=== PATIENT | male | born 1990 | race Caucasian/White ===

== ENCOUNTER 2018-05-08 22:45 | Inpatient (IN) | payer BC ==
[~2018-05-08] VITALS: Ht 182.9 cm; Wt 73.9 kg
--- NOTE | 2018-05-08 23:11 | NUR ---
BIBSELF C/C "FEELS LIKE THERE IS A BLOCKAGE OF ESOPHAGUS SINCE 8:30PM AFTER EATING". PT SPEAKING IN FULL SENTENCES. PT DENIES CHOKING. PT DENIES SOB. SKIN WARM AND DRY. PT IS AAOX4. PT AMBULATED WITH STEADY GAIT NOTED. NO S/S OF ACUTE DISTRESS NOTED. RR EVEN AND UNLABORED. PT PLACED ON MONITOR AND POX. PT SAFETY AND COMFORT MEASURES IN PLACE. BEDSIDE FOR [place]
[2018-05-08] MEDS ORDERED: GLUCAGON,HUMAN RECOMBINANT 1 MG/VIAL VIAL ONE (23:21)
[2018-05-08] MEDS ORDERED: GLUCAGON,HUMAN RECOMBINANT 1 MG/VIAL VIAL IV ONE (23:30)
[2018-05-09] MEDS ORDERED: MAG HYDROX/AL HYDROX/SIMETH 30 ML UDC PO ONE (00:30)
[2018-05-09] MEDS ORDERED: LIDOCAINE VISCOUS 2% UD 15 ML UDC MM ONE (00:30)
[2018-05-09] MEDS ORDERED: LIDOCAINE VISCOUS 2% UD 15 ML UDC ONE (00:46)
[2018-05-09] MEDS ORDERED: MAG HYDROX/AL HYDROX/SIMETH 30 ML UDC ONE (00:46)
[2018-05-09] MEDS ORDERED: IV NS 0.9% 1,000 ML BAG IV ONE (02:00)
[2018-05-09] MEDS ORDERED: ONDANSETRON HCL/PF 4 MG/2 ML VIAL IV ONE (02:00)
[2018-05-09] MEDS ORDERED: ONDANSETRON HCL/PF 4 MG/2 ML VIAL ONE (02:05)
--- NOTE | 2018-05-09 02:42 | NUR ---
REPORT GIVEN TO GIANLUCA MANE FOR LORENE
--- NOTE | 2018-05-09 02:50 | NUR ---
MS RN INITIAL NOTES Admitted this 27 y.o male to [place] room 323-2 under the service of Dr. Rock with admitting diagnosis of Acute Dysphagia. Patient came in via wheelchair accompanied by his girlfriend and 1 staff. AA/Ox4, no difficulty of speaking, speech clear. On room air, no respiratory problem noted, denies pain at this time. Ambulatory without assistance, balance steady. With nausea and frequently vomiting small amount of clear oral secretion, no food components noted. Had Zofran from ER less than an hour prior to coming in the unit. Assured comfort on bed, admission routine done. Patient denies any skin disorders, skin assessment. Patient verbalized he is comfortable and prefers to be on his casual clothes. Belongings inventory done by SEAMAN. Started IV D5NS @ 80ml/hr as ordered. Instructed on NPO for further observation, patient verbalized understanding intake restriction. Call light within easy reach. Instructed to not hesitate to call the nurse for any unusualities. Will continue to monitor.
[2018-05-09 03:00] VITALS: BP 131/78
[2018-05-09] MEDS ORDERED: MORPHINE SULFATE INJ 2 MG/ML DISP.SYRIN IV PRN (03:00)
[2018-05-09] MEDS: IV D5/ 0.9% NACL 1,000 ML IV PRN ×2 (03:00→19:03)
[2018-05-09] MEDS ORDERED: MORPHINE SULFATE INJ 4 MG/ML DISP.SYRIN IM PRN (06:30)
[2018-05-09] MEDS: ONDANSETRON HCL/PF 4 MG/2 ML VIAL IVP PRN ×2 (06:34→17:06)
[2018-05-09] MEDS: MORPHINE SULFATE INJ 4 MG/ML DISP.SYRIN IV PRN ×3 (06:35→21:21)
--- NOTE | 2018-05-09 06:42 | NUR ---
MS RN CLOSING NOTES Patient asleep on semi-Lawler's position on bed with patent peripheral IV line RAC G#20 with D5NS @ 80ml/hr as ordered. Kept on NPO. Patient was noted asleep around 3am, nausea and vomiting subsided. Ambulates self to toilet without assistance. Still felt something in esophagus just like upon admission. Nauseated throughout the shift, total vomitus 250ml, clear mostly saliva. Patient claimed he was able to sleep all night. Medicated with Zofran for nausea and Morphine for pain.
[2018-05-09 07:22] LABS: BASOPHILS % (AUTO) 0.5 % (0.0-2.0); HEMATOCRIT 45 % (39-51); HEMOGLOBIN 14.9 g/dL (13.5-17.5); LYMPHOCYTES # (AUTO) 1.6 /CMM (0.8-4.8); LYMPHOCYTES % (AUTO) 19.1 % (20.0-44.0); MEAN CORPUSCULAR HEMOGLOBIN 32 PG (26.0-33.0); MEAN CORPUSCULAR HGB CONC 33 g/dl (31.0-36.0); MEAN CORPUSCULAR VOLUME 96 fL (80-96); MONOCYTES # (AUTO) 0.6 /CMM (0.1-1.30); MONOCYTES % (AUTO) 7.2 % (2.0-12.0); NEUTROPHILS # (AUTO) 5.8 /CMM (1.8-8.9); NEUTROPHILS % (AUTO) 67.2 % (43.0-81.0); PLATELET COUNT (AUTO) 225 /CMM (150-450); RDW COEFFICIENT OF VARIATION 12.6 (11.5-15.0); RED BLOOD CELL COUNT(AUTO) 4.65 MIL/uL (4.5-6.0); WHITE BLOOD COUNT (AUTO) 8.6 K/uL (4.3-11.0)
--- NOTE | 2018-05-09 07:25 | NUR ---
MS/RN OPENING NOTE PATIENT ALERT AND ORIENTED X4. DENIES SOB. RESPIRATION REGULAR AND UNLABORED. DENIES PAIN. THE PATIENT DENIES NAUSEA/[id number]. RAC G 20 PATENT AND IV FLUID INFUSING WITH NO S/S INFILTRATION. PATIENT NPO. BED LOW AND LOCKED. SIDE RAILS UP X2. CALL LIGHT WITHIN REACH. WILL CONTINUE TO MONITOR.
[2018-05-09 07:49] LABS: ALBUMIN 4.3 g/dL (3.4-5.0); BILIRUBIN,TOTAL 0.8 mg/dL (0.2-1.0); CALCIUM, SERUM 8.9 mg/dL (8.5-10.1); CREATININE 1.1 mg/dL (0.6-1.3); POTASSIUM 3.8 mmol/L (3.5-5.1); TOTAL PROTEIN, SERUM 7.3 g/dL (6.4-8.2)
[2018-05-09 08:00] VITALS: BP 141/81
[2018-05-09] MEDS ORDERED: FAMOTIDINE/PF INJ 20 MG/2 ML VIAL IV SCH (09:00)
[2018-05-09] MEDS ORDERED: PANTOPRAZOLE 40 MG TABLET.DR PO SCH (12:30)
[2018-05-09 13:14] LABS: INR 1.04 (0.87-1.13)
[2018-05-09] MEDS ORDERED: PANTOPRAZOLE 40 MG VIAL IV ONE (13:30)
[2018-05-09] MEDS ORDERED: ANESTHESIA TRAY IN PYXIS 1 EA TRAY MC ONE (13:55)
[2018-05-09] MEDS ORDERED: FENTANYL PF 100MCG/2ML AMPUL ONE (14:19)
[2018-05-09] MEDS ORDERED: MIDAZOLAM HCL 2 MG/2ML VIAL ONE (14:19)
[2018-05-09] MEDS ORDERED: SUCCINYLCHOLINE CHLORIDE 20 MG/ML VIAL ONE (14:28)
[2018-05-09 16:00] VITALS: BP 140/93
--- NOTE | 2018-05-09 16:52 | NUR ---
MS/RN NOTE RECEIVED ORDER: MORPHINE SULFATE 1 MG IV PUSH STAT X1. THE ORDER IS VERIFIED. NOTED AND CARRIED OUT.
[2018-05-09] MEDS ORDERED: MORPHINE SULFATE INJ 4 MG/ML DISP.SYRIN IV ONE (17:00)
[2018-05-09] MEDS: PANTOPRAZOLE 40 MG VIAL IV SCH (17:00)
--- NOTE | 2018-05-09 17:34 | NUR ---
MS/RN NOTE RECEIVED NEW ORDER FROM DR DURON: VISCOUS LIDOCAIN 1% PO Q6HR PRN. N OTED AND CARRIED OUT.
--- NOTE | 2018-05-09 17:40 | NUR ---
MS/RN NOTE VISCOUS LIDOCAIN 1% NOT AVAILABLE IN PHARM. PER DR DURON NEW ORDER OF VISCOUS LIDOCAIN 2% PO Q6HR PRN IS PLACED.
[2018-05-09] MEDS: LIDOCAINE VISCOUS 2% UD 15 ML UDC PO PRN (17:59)
--- NOTE | 2018-05-09 17:59 | NUR ---
MS/RN NOTE PO MEDICATION LIDOCAINE PER DR DURON PATIENT NPO EXCEPT MEDS. PATIENT TOLERAED THE MEDICATION WELL.
--- NOTE | 2018-05-09 18:31 | NUR ---
MS/RN NOTE PER DR MARTIN NEW ORDER NPO EXCEPT MEDS.
--- NOTE | 2018-05-09 18:54 | NUR ---
MS/RN NOTE PATIENT ALERT AND ORIENTED X4. RESPIRATION REGULAR AND UNLABORED. DENIES SOB. MID CHEST PAIN 4/10 AFTER ADMINISTERING LIDOCAINE. THE PATIENT IN STABLE CONDITION. DENIES NAUSEA AT THIS TIME. RAC G 20 PATENT AND IV INFUSING WITH NO S/S INFILTRATION. BED LOW AND LOCKED. SIDE RAILS UP X2. CALL LIGHT WITHIN REACH. WILL ENDORSE TO FINANCIAL SYSTEMS MANAGER.
--- NOTE | 2018-05-09 19:00 | NUR ---
MS RN INITIAL NOTES Received patient on high Lawler's position with patent peripheral IV line RAC G#20 with d5 NS @ 80ml/hr as ordered. S/P EGD with clips placement for esophageal tear. Patient complaint pain retrosternal at this time but had morphine and lidocaine 2 hrs earlier. Instructed patient to report any worsening of pain. With girlfriend at bedside. On NPO except PO meds. Will monitor accordingly.
--- NOTE | 2018-05-09 19:11 | NUR ---
Met with patient and his girlfriend at the bedside. Patient lives locally with a roommate. He is ambulatory, independent and was physically active. He will take an [employer] transportation when dc. Addendum: 05/09/18 at 1910 by CARLOS GODWIN RN Amended: Links added.
[2018-05-09] MEDS ORDERED: LIDOCAINE VISCOUS 2% UD 15 ML UDC PO STA (19:43)
--- NOTE | 2018-05-09 19:53 | NUR ---
MS RN NOTES Patient claimed to be in severe pain, 10/10, prominent facial grimace noted and guarding. Offered morphine, patient claimed it only acts in minutes. Notified MD Sumit Butler of morphine's effectiveness, MD ordered Lidocaine 2% 15ML PO. Administered as ordered. Instructed patient to report Lidocaine's effectiveness and any worsening pain to be addressed accordingly. Patient is on NPO except PO meds, instructed not take water immediately after taking this Lidocaine. Patient verbalized understanding. Will continue to monitor.
[2018-05-09 20:00] VITALS: BP 144/80
--- NOTE | 2018-05-09 21:28 | NUR ---
MS RN NOTES Patient awaken with severe retrosternal pain. Also patient claimed pain on abdomen RUQ. Upon palpation, abomen is noted soft, with increased pain on RUQ. Offered morphine, patient agree this time. Relayed to Dr. Butler, with STAT telephone orders noted and carried out. Monitor patient accordingly.
[2018-05-09 21:30] VITALS: BP 127/72
[2018-05-09] MEDS ORDERED: diphenhydrAMINE HCL 50 MG/ML VIAL IV STA (21:41)
--- NOTE | 2018-05-09 23:40 | NUR ---
MS RN NOTES STAT KUB and CXR result came in. Relayed result to Dr. Sumit Butler, with response he will contact the primary physician.
--- NOTE | 2018-05-09 23:55 | NUR ---
MS RN NOTES Received TO from Dr. Butler. To start Zosyn 3.375gm Q6H IVPB for suspected infection; for CT Scan chest and abdomen with PO contrast in AM. Obtained consent, signed by patient, place in chart. IV ATB started, monitored patient for ASE.
[2018-05-10] MEDS: LIDOCAINE VISCOUS 2% UD 15 ML UDC PO PRN ×2 (00:26→07:42)
--- NOTE | 2018-05-10 00:26 | NUR ---
MS RN NOTES Patient complaint of severe pain with intense moaning, facial grimacing and guarding while holding his breath. Offered Lidocaine as ordered. Patient tolerated the medication well. Instructed to not take water immediately after taking the medication. Informed patient of the incoming procedure newly ordered to be done in AM and that he is on NPO. Patient verbalized understanding. Girlfriend remained at bedside giving support to patient. Instructed to notify the nurse if there is anything to enhance his comfort. Will continue to monitor.
[2018-05-10] MEDS ORDERED: PIPERACILLIN /TAZOBACTAM 3.375 G VIAL IV ONE ×2 (00:33→05:12)
[2018-05-10] MEDS: PIPERACILLIN /TAZOBACTAM 3.375 G in IV D5W 50 ML IV SCH ×4 (00:36→17:38)
--- NOTE | 2018-05-10 03:55 | NUR ---
MS RN NOTES Patient noted asleep at this time, girlfriend remained at bedside.
--- NOTE | 2018-05-10 05:30 | NUR ---
MS RN NOTES Patient complained of moderate pain, 7/10 at retrosternal region. RUQ abdomen pain only when palpated. Administered Morphine as ordered. Will monitor accordingly.
[2018-05-10] MEDS: MORPHINE SULFATE INJ 4 MG/ML DISP.SYRIN IV PRN (05:33)
--- NOTE | 2018-05-10 06:49 | NUR ---
MS RN CLOSING NOTES Patient slept intermittently, on semi-Lawler's position on bed. With patent peripheral IV line RAC G#20 with D5NS infusing well @ 80ml/hr as ordered. No s/s of infiltration noted. Ambulated to toilet in steady gait. Still with intermittently increasing pain retrosternal rated moderate to severe and mild to moderate pain abdomen RUQ. Medicated for pain, noted effective. Kept on NPO for CT scan of chest and abdomen this morning. All needs attended to enhance comfort, patient appreciative of the care provided. Girlfriend remained at bedside. With request to see/discuss with MD the POC. Endorsed to the next shift for continuity of care.
[2018-05-10] MEDS: IV D5/ 0.9% NACL 1,000 ML IV PRN (07:02)
--- NOTE | 2018-05-10 07:15 | NUR ---
MS RN INITIAL NOTES Report received. Patient received in bed, awake and verbally responsive. Alert and oriented x4. Complaints of pain with facial grimacing and guarding of site noted. Girlfriend at bedside. NPO for procedure today. Safety measures in place. Will continue to monitor and assess patient
[2018-05-10 08:00] VITALS: BP 129/75
[2018-05-10] MEDS: PANTOPRAZOLE 40 MG VIAL IV SCH ×2 (08:19→16:26)
--- NOTE | 2018-05-10 08:40 | NUR ---
MS RN - NOTES MD at bedside. Questions and concerns answered.
[2018-05-10] MEDS ORDERED: PANTOPRAZOLE 40 MG VIAL IV SCH (09:00)
[2018-05-10] MEDS ORDERED: DIATR MEGLU/DIATRIZOATE SODIUM 30 ML BOTTLE (GASTROGRAPHIN) ONE (11:31)
--- NOTE | 2018-05-10 11:54 | NUR ---
MS RN NOTES Patient transported to Radiology by staff for CT scan in stable condition
[2018-05-10] MEDS ORDERED: BUDESONIDE 3 MG CAP.SR.24H PO SCH (12:30)
[2018-05-10] MEDS: methylPREDNISolone SOD SUCC 40 MG/ML VIAL IV ONE ×2 (12:51→13:42)
[2018-05-10] MEDS: FEXOFENADINE HCL (60 MG) 60 MG TABLET PO SCH ×2 (12:52→20:18)
[2018-05-10] MEDS ORDERED: FLUTICASONE 110MCG 1 EA INHALER IH SCH (13:00)
[2018-05-10 16:00] VITALS: BP 138/71
--- NOTE | 2018-05-10 19:00 | NUR ---
MS RN INITIAL NOTES Received patient on Lawler's position on bed with patent peripheral IV line RAC G#20 wtih D5NS @80cc/hr, no s/s of infiltration noted. Appeared cheerful this time, claimed he felt sometimes mild pain but very tolerable. No complaints at this time. Able to perform ADLs independently, ambulates in steady gait. Will monitor accordingly.
--- NOTE | 2018-05-10 19:34 | NUR ---
MS RN CLOSING NOTES Report given. Patient remained in bed, awake and verbally responsive. Alert and oriented x4. Complaints of pain; patient refuses pain mgmt at the moment. No SOB/labored breathing noted. Not in any type of distress. Afebrile. Discharge tomorrow per MD. Continue antibiotic treatment. All needs anticipated and met. Girlfriend at bedside. Bed in locked and lowest position with call light within reach. Endorsed to oncoming shift nurse.
[2018-05-10 20:00] VITALS: BP 118/68
[2018-05-10] MEDS: FLUTICASONE 110MCG 1 EA INHALER IH SCH (20:15)
--- NOTE | 2018-05-10 20:30 | NUR ---
MS RN NOTES Due meds given as ordered. Patient took PO meds with water, able to swallow whole pill with water without difficulty noted.
--- NOTE | 2018-05-10 21:35 | NUR ---
MS RN NOTES PT RECEIVED FROM ALHAJI IN STABLE CONDITION, CURRENTLY IN BED LYING COMFORTABLY, A/OX4, NO S/S OF PAIN OR DISTRESS NOTED, IV IS PATENT AND INTACT, WILL CONTINUE TO MONITOR,
--- NOTE | 2018-05-10 21:39 | NUR ---
MS RN NOTES TRANSFER OF CARE ENDORSED PATIENT TO IDALMIS MOSQUERA. PATIENT IN STABLE CONDITION, NO COMPLAINT OF N/V AND DISCOMFORT AT THIS TIME. WITH PATENT IVF INFUSING WELL ORDERED. FOR POSSIBLE DISCHARGE IN AM.
[2018-05-11] MEDS: PIPERACILLIN /TAZOBACTAM 3.375 G in IV D5W 50 ML IV SCH ×3 (00:16→12:17)
[2018-05-11] MEDS: FLUTICASONE 110MCG 1 EA INHALER IH SCH ×2 (01:15→08:24)
[2018-05-11] MEDS: IV D5/ 0.9% NACL 1,000 ML IV PRN (05:08)
--- NOTE | 2018-05-11 06:37 | NUR ---
MS RN CLOSING NOTES PT IS IN BED RESTING COMFORTABLY WITH SIDE RAILS UP X2 IN LOWEST AND LOCKED POSITION, NO S/S OF PAIN OR DISTRESS NOTED, BREATHING IS EVEN AND UNLABORED ON RA, IV IS PATENT AND INTACT WITH IVF RUNNING ORDERED, A/O X4, GIRLFRIEND IS PRESENT AT THE BEDSIDE, DISCHARGE LATER TODAY PER MD, SAFETY PRECAUTIONS IN PLACE, ALL NEEDS ATTENDED TO, CALL LIGHT WITHIN REACH, WILL CONTINUE TO MONITOR AND ENDORSE LORENE TO DAY SHIFT NURSE
--- NOTE | 2018-05-11 07:10 | NUR ---
MS RN INITIAL NOTES Report received. Patient received in bed, awake and verbally responsive. Girlfriend at bedside. Denies any chest pain or any type of pain. No SOB/labored breathing noted. Not in any type of distress. Safety measures in place. Will continue to monitor and assess patient.
[2018-05-11] MEDS: PANTOPRAZOLE 40 MG VIAL IV SCH (08:23)
[2018-05-11] MEDS: FEXOFENADINE HCL (60 MG) 60 MG TABLET PO SCH (08:23)
[2018-05-11] MEDS ORDERED: prednisoLONE 15 MG/5 ML UDC PO SCH (09:00)
--- NOTE | 2018-05-11 09:49 | NUR ---
MS RN NOTES Monitored patient's tolerance for breakfast. Patient stated, "the eggs and peach went down okay, but I had a hard time swallowing the bread. It was painful." MD and EMBOSSOGRAPH OPERATOR made aware.
--- NOTE | 2018-05-11 16:30 | NUR ---
MS CARE TRANSITIONS NURSE NOTES Patient was seen by GABIRELE Bowens for final discharge assessment. Patient clear for discharge to home. Discharge instructions given and to follow up with PCP in one week/GI clinic in 1.5-2weeks; patient verbalized understanding. Denies any pain. Not in any type of distress. Belongings with patient; form signed. Patient is accompanied home with Rosmery (girlfriend) via private car. IV access removed; cath tip intact with no bleeding noted.
== END 2018-05-11 16:30 | disposition home or self-care (01) | DRG 393 ==
LOC: ER 22:54 → MED 05-09 02:29
PROVIDERS: ADMIT Internal Medicine; ATTEND Internal Medicine
PROC: 0DB58ZX Excision of Esophagus, Via Natural or Artificial Opening Endoscopic, Diagnostic (ICD-10-PCS; principal; 2018-05-09 14:00)
PROC: 0DB68ZX Excision of Stomach, Via Natural or Artificial Opening Endoscopic, Diagnostic (ICD-10-PCS; principal; 2018-05-09 14:00)
PROC: 0W3P8ZZ Control Bleeding in Gastrointestinal Tract, Via Natural or Artificial Opening Endoscopic (ICD-10-PCS; principal; 2018-05-09 14:00)
PROC: 0CCM8ZZ Extirpation of Matter from Pharynx, Via Natural or Artificial Opening Endoscopic (ICD-10-PCS; principal; 2018-05-09 14:00)
DX: T18.128A Food in esophagus causing other injury, initial encounter (principal); S27.813A Laceration of esophagus (thoracic part), initial encounter; X58.XXXA Exposure to other specified factors, initial encounter; Y92.9 Unspecified place or not applicable; K29.70 Gastritis, unspecified, without bleeding; Z91.010 Allergy to peanuts; K20.9 Esophagitis, unspecified; Z91.018 Allergy to other foods; R13.10 Dysphagia, unspecified
CPT/HCPCS: 36415; 70360-TC; 71045-TC; 71250-TC; 74018; 74150-TC; 80053-TC; 82962-TC; 85025-TC; 85610-TC; 87081-TC; 88305-TC; 88313-TC; 88342; 92521; A4606; C9113; J0330; J1200; J1610; J2250; J2270; J2405; J2543; J2920; J3010; J3490; J7030; J7042; J7060; J7510; Q9963; Z7610

== ENCOUNTER 2018-05-14 12:05 | Outpatient (CLI) | payer BC | END 2018-05-14 23:59 | disposition home or self-care (01) | LOC: MSC 12:05 | PROVIDERS: ATTEND Internal Medicine | DX: K20.0 Eosinophilic esophagitis (principal); D72.1 Eosinophilia; Z91.010 Allergy to peanuts; Z91.018 Allergy to other foods; Z98.890 Other specified postprocedural states ==